=== PATIENT | male | born 1965 | race African-American/Black ===

== ENCOUNTER 2016-03-20 05:39 | Inpatient (IN) | payer OTHER ==
[2016-03-20] VITALS (7 sets, daily range): BP systolic 150–188; BP diastolic 86–144; PULSE 76–99; RESP 17–21; TEMP 97.1–98; O2SAT 94–99
[~2016-03-20] VITALS: Ht 185.4 cm; Wt 70.4 kg
[~2016-03-20 05:39] MED LIST: AMLO5 PO; ASPI81TA11 PO; ATAZ200 PO; BENZ100 PO; DULO20 PO; EPZITAB4 PO; GLUCTAB PO; HYDRA25 PO
[2016-03-20] MEDS ORDERED: SODIUM CHLOR 0.9% 1000 ML INJ 1,000 ML IV SCH (05:58)
[2016-03-20] MEDS ORDERED: SODIUM CHLORIDE 0.9% FLUSH 5 ML FLUSH IVF PRN (06:00)
[2016-03-20] MEDS ORDERED: HYDR25TA35 PO (06:07)
[2016-03-20] MEDS ORDERED: BENZ100 PO (06:07)
[2016-03-20] MEDS ORDERED: AMLO10 PO (06:07)
[2016-03-20] MEDS ORDERED: METF500T PO (06:07)
[2016-03-20 06:45] LABS: AUTOMATED NEUTROPHIL # 2.6 TH/MM3 (1.8-7.7); BASOPHIL % 0.9 % (0.0-2.0); EOSINOPHIL # 0.3 TH/MM3 (0-0.4); EOSINOPHIL % 5.4 % (0.0-4.0); HEMATOCRIT 41.5 % (39.0-51.0); HEMO FLAGS DIFF FINAL; LYMPH % 38.2 % (9.0-44.0); MEAN CELL VOLUME 89.2 FL (80.0-100.0); MEAN CORPUSCULAR HEMOGLOBIN 29.5 PG (27.0-34.0); MEAN CORPUSCULAR HGB CONC 33.1 % (32.0-36.0); MONO % 5.7 % (0.0-8.0); NEUT % 49.8 % (16.0-70.0); PLATELET COUNT 269 TH/MM3 (150-450); RED BLOOD COUNT 4.65 MIL/MM3 (4.50-5.90); RED CELL DISTRIBUTION WIDTH 16.4 % (11.6-17.2); WHITE BLOOD COUNT 5.1 TH/MM3 (4.0-11.0)
[2016-03-20] MEDS ORDERED: SODIUM CHLORID 0.9% 500 ML INJ 500 ML IV ONE (06:45)
[2016-03-20] MEDS ORDERED: MORPHINE SULFATE 4 MG/ML INJ IV PUSH ONE (06:45)
[2016-03-20] MEDS ORDERED: ONDANSETRON HCL 4 MG/2 ML VIAL IV PUSH ONE (06:45)
--- NOTE | 2016-03-20 06:50 | PD ---
HPI Chief Complaint: Abdominal Pain Time Seen by Provider: 05:58 Travel History International Travel<30 days: No Contact w/Intl Traveler<30days: No Traveled to known affect area: No History of Present Illness HPI 51-year-old male came to the emergency room with history of abdominal distention , abdominal pain and shortness of breath that's progressively worsening over past 4 weeks. Patient has HIV with questionable compliance on anti-retroviral medications. Patient was hypertensive in triage. He seems to be in distress and grunting called her oxygen saturation is 99-100% on room air. No history of nausea vomiting. [facility] Past Medical History Narrative Medical List of his past medical history as reviewed from the nursing note. Arthritis: Yes Autoimmune Disease: Yes (HIV+) Blood Disorders: Yes (HIV) Anxiety: Yes Depression: Yes Heart Rhythm Problems: No Cancer: No Cardiac Catheterization: No Cardiovascular Problems: Yes (HTN) High Cholesterol: Yes Chest Pain: No Congestive Heart Failure: No Cerebrovascular Accident: No Diabetes: Yes Patient Takes Glucophage: Yes (03/19/15 0900) Diminished Hearing: No Endocrine: No GERD: Yes Glaucoma: No Genitourinary: No Hepatitis: Yes (HEP C) Hiatal Hernia: No Hypertension: Yes Immune Disorder: Yes (HIV) Kidney Stones: No Musculoskeletal: Yes (ARTHRITIS) Neurologic: No Psychiatric: Yes (ANXIETY AND DEPRESSION) Reproductive: No Respiratory: Yes (? SLEEP APNEA) Immunizations Current: Yes Migraines: No Renal Failure: No Seizures: No Thyroid Disease: No Ulcer: No Past Surgical History Abdominal Surgery: Yes (APPENDECTOMY) AICD: No Appendectomy: Yes Cardiac Surgery: No Coronary Artery Bypass Graft: No Ear Surgery: No Endocrine Surgery: No Eye Surgery: No Genitourinary Surgery: No Gynecologic Surgery: No Joint Replacement: No Oral Surgery: No Pacemaker: No Thoracic Surgery: No Family History Family Myocardial Infarction: Yes (MOTHER'S BROTHER) Social History Alcohol Use: Yes (OCCASIONAL) Tobacco Use: Yes (< 1/2 PPD) Substance Use: No (positive for cocaine) Allergies-Medications (Allergen,Severity, Reaction): Coded Allergies: Aspirin (Verified Allergy, Severe, 03/20/16) Daypro (Verified Allergy, Mild, 03/20/16) Naprosyn (Verified Allergy, Mild, 03/20/16) Ultram (Verified Allergy, Mild, 03/20/16) Comments List of his allergies reviewed from the nursing note. Reported Meds & Prescriptions Reported Meds & Active Scripts Active Reported Metformin (Metformin HCl) 500 Mg Tab 500 Mg PO BIDPC With meals Norvasc (Amlodipine Besylate) 10 Mg Tab 10 Mg PO DAILY Hydralazine (Hydralazine HCl) 25 Mg Tab 25 Mg PO Q8HR Take with a meal Tessalon Perles (Benzonatate) 100 Mg Cap 200 Mg PO TID PRN Narrative Medication List of his home medications reviewed from the nursing note. Review of Systems Except as stated in HPI: all other systems reviewed are Neg Physical Exam Narrative GENERAL: Awake, alert, moderate distress, anxious SKIN: Warm and dry. HEAD: Atraumatic. Normocephalic. EYES: Pupils equal and round. No scleral icterus. No injection or drainage. ENT: No nasal bleeding or discharge. Mucous membranes pink and moist. NECK: Trachea midline. No JVD. CARDIOVASCULAR: Regular rate and rhythm. No murmur appreciated. RESPIRATORY: No accessory muscle use. Tachypneic. Fine crackles bibasilar GASTROINTESTINAL: Abdomen tense, non-tender, distended abdomen. Hepatic and splenic margins not palpable. MUSCULOSKELETAL: No obvious deformities. No clubbing. No cyanosis. No edema. NEUROLOGICAL: Awake and alert. No obvious cranial nerve deficits. Motor grossly within normal limits. Normal speech. PSYCHIATRIC: Appropriate mood and affect; insight and judgment normal. Data Data Last Documented VS Vital Signs Date Time Temp Pulse Resp B/P Pulse Ox O2 Delivery O2 Flow Rate FiO2 03/20/16 08:45 99 21 188/117 96 Room Air 03/20/16 05:43 97.1 Orders Complete Blood Count With Diff (03/20/16 05:58) Comprehensive Metabolic Panel (03/20/16 05:58) Lipase (03/20/16 05:58) Urinalysis - C+S If Indicated (03/20/16 05:58) Iv Access Insert/Monitor (03/20/16 05:58) Ecg Monitoring (03/20/16 05:58) Oximetry (03/20/16 05:58) Sodium Chlor 0.9% 1000 Ml Inj (Ns 1000 M (03/20/16 05:58) Sodium Chloride 0.9% Flush (Ns Flush) (03/20/16 06:00) Chest, Single Ap (03/20/16 ) Ct Abd/Pel W/O Iv Contrast (03/20/16 ) Lactic Acid (03/20/16 06:40) Sodium Chlorid 0.9% 500 Ml Inj (Ns 500 M (03/20/16 06:45) Morphine Inj (Morphine Inj) (03/20/16 06:45) Ondansetron Inj (Zofran Inj) (03/20/16 06:45) B-Type Natriuretic Peptide (03/20/16 06:50) Electrocardiogram (03/20/16 06:21) Direct Bilirubin (03/20/16 06:18) Ldh Serum (03/20/16 06:18) Magnesium (Mg) (03/20/16 06:18) Troponin I (03/20/16 06:18) Furosemide Inj (Lasix Inj) (03/20/16 07:45) Admit Order (Ed Use Only) (03/20/16 08:47) Labs Laboratory Tests Test 03/20/16 03/20/16 03/20/16 06:18 06:51 07:50 White Blood Count 5.1 TH/MM3 Red Blood Count 4.65 MIL/MM3 Hemoglobin 13.7 GM/DL Hematocrit 41.5 % Mean Corpuscular Volume 89.2 FL Mean Corpuscular Hemoglobin 29.5 PG Mean Corpuscular Hemoglobin 33.1 % Concent Red Cell Distribution Width 16.4 % Platelet Count 269 TH/MM3 Mean Platelet Volume 8.4 FL Neutrophils (%) (Auto) 49.8 % Lymphocytes (%) (Auto) 38.2 % Monocytes (%) (Auto) 5.7 % Eosinophils (%) (Auto) 5.4 % Basophils (%) (Auto) 0.9 % Neutrophils # (Auto) 2.6 TH/MM3 Lymphocytes # (Auto) 2.0 TH/MM3 Monocytes # (Auto) 0.3 TH/MM3 Eosinophils # (Auto) 0.3 TH/MM3 Basophils # (Auto) 0.0 TH/MM3 CBC Comment DIFF FINAL Differential Comment Sodium Level 139 MEQ/L Potassium Level 4.5 MEQ/L Chloride Level 106 MEQ/L Carbon Dioxide Level 27.2 MEQ/L Anion Gap 6 MEQ/L Blood Urea Nitrogen 20 MG/DL Creatinine 1.22 MG/DL Estimat Glomerular Filtration 77 ML/MIN Rate Random Glucose 86 MG/DL Calcium Level 7.9 MG/DL Magnesium Level 2.0 MG/DL Total Bilirubin 0.5 MG/DL Direct Bilirubin 0.1 MG/DL Aspartate Amino Transf 52 U/L (AST/SGOT) Alanine Aminotransferase 85 U/L (ALT/SGPT) Alkaline Phosphatase 95 U/L Lactate Dehydrogenase 352 U/L Troponin I 0.34 NG/ML B-Type Natriuretic Peptide 1216 PG/ML Total Protein 7.3 GM/DL Albumin 2.4 GM/DL Lipase 168 U/L Lactic Acid Level 1.2 mmol/L Urine Color YELLOW Urine Turbidity CLEAR Urine pH 6.0 Urine Specific [place] 1.026 Urine Protein 100 mg/dL Urine Glucose (UA) NEG mg/dL Urine Ketones NEG mg/dL Urine Occult Blood NEG Urine Nitrite NEG Urine Bilirubin NEG Urine Urobilinogen 2.0 MG/DL Urine Leukocyte Esterase NEG Urine RBC 1 /hpf Urine WBC 5 /hpf Urine Squamous Epithelial <1 /hpf Cells Urine Mucus FEW /lpf Microscopic Urinalysis Comment CULT NOT INDICATED MDM Medical Decision Making Medical Screen Exam Complete: Yes Emergency Medical Condition: Yes Medical Record Reviewed: Yes Interpretation(s) Twelve-lead EKG shows normal sinus rhythm, PVCs, nonspecific ST-T wave changes, normal axis. Heart rate of 94 bpm. Differential Diagnosis Acute pancreatitis, cirrhosis, ascites, pneumonia, PCP Narrative Course 6:49 AM CBC is back and within normal limits. Awaiting for the chemistry and CT scan to be done and resulted. Patient is getting IV fluid bolus and pain medication. Case will be signed over to the oncoming ER physician. 7:17 AM chest x-ray was reviewed and I have ordered a BNP and troponin as well. Procedures EKG Prior to Arrival: Yes Niko Ty MD Mar 20, 2016 06:50
--- NOTE | 2016-03-20 06:52 | RADRPT ---
EXAM DATE/TIME: 03/20/2016 06:44 [facility] COMPARISON: CHEST SINGLE AP, December 12, 2015, 15:36. INDICATIONS : Shortness of breath. MEDICAL HISTORY : Hypertension. Cardiovascular disease. Diabetes mellitus type II. SURGICAL HISTORY : None. ENCOUNTER: Initial ACUITY: 1 day PAIN SCORE: 0/10 LOCATION: Bilateral chest FINDINGS: Increased prominence to the heart with panchamber enlargement. There is indistinctness and engorgeme nt of the central bronchopulmonary markings. Both hemidiaphragms remain well delineated. CONCLUSION: When compared to November 2015, increase in size the heart and engorgement of the central bronchopul monary markings suggesting congestive failure. The Hasmukh Gallo MD on March 20, 2016 at 6:49 Board Certified Radiologist. This report was verified electronically.
[2016-03-20 07:16] LABS: ALKALINE PHOSPHATASE 95 U/L (45-117); ALT (GPT) 85 U/L (12-78); ANION GAP 6 MEQ/L (5-15); AST (GOT) 52 U/L (15-37); BICARBONATE 27.2 MEQ/L (21.0-32.0); BLOOD UREA NITROGEN 20 MG/DL (7-18); CHLORIDE 106 MEQ/L (98-107); GLOMERULAR FILTRATION RATE 77 ML/MIN (>89); SODIUM (NA) 139 MEQ/L (136-145); TOTAL BILIRUBIN ADULT 0.5 MG/DL (0.2-1.0)
[2016-03-20 07:31] LABS: POTASSIUM 4.5 MEQ/L (3.5-5.1)
[2016-03-20 07:41] LABS: LDH SERUM 352 U/L (87-241)
[2016-03-20] MEDS ORDERED: FUROSEMIDE 100 MG/10 ML VIAL IV PUSH ONE (07:45)
--- NOTE | 2016-03-20 08:04 | RADRPT ---
EXAM DATE/TIME: 03/20/2016 07:12 [facility] COMPARISON: No previous studies available for comparison. INDICATIONS: Abdominal pain and distention, short of breath and cough x 1 month. ORAL CONTRAST: No oral contrast ingested. RADIATION DOSE: 6.02 CTDIvol (mGy) MEDICAL HISTORY: Gastroesophageal reflux disease. Diabetes mellitus type 2. Hepatitis C.HIV. Hypertension. SURGICAL HISTORY: Appendectomy. ENCOUNTER: Initial ACUITY: 1 month PAIN SCALE: 9/10 LOCATION: Abdomen. TECHNIQUE: Volumetric scanning of the abdomen and pelvis was performed. Using automated exposure control and ad justment of the mA and/or kV according to patient size, radiation dose was kept as low as reasonably achievable to obtain optimal diagnostic quality images. FINDINGS: Lack of intravenous contrast makes detection of subtle abnormalities difficult. The heart is enlarged with small bilateral pleural effusions. There is moderate ascites. The liver is grossly free of focal defects. Spleen, pancreas, kidneys ar e grossly normal. In the pelvis moderate ascites is present. There is no definite mass. There is no free air or obstr uction Calcification is seen in what is probably phleboliths in the gonadal vein in the scrotum. Review of bone windows reveals only degenerative changes. CONCLUSION: Severely limited exam with lack of intravenous contrast. The heart is enlarged with small bilateral p leural effusions and ascites. I see no definite mass. Repeat exam with contrast is suggested. Minh Noriega MD FACR on March 20, 2016 at 7:51 Board Certified Radiologist. This report was verified electronically.
[2016-03-20 08:11] LABS: BLOOD, URINE NEG (NEG); COMMENT (UR) CULT NOT INDICATED; CULTURE IF INDICATED CULT NOT INDICATED; GLUCOSE,URINE NEG (NEG); KETONE, URINE NEG (NEG); MUCUS URINE FEW /lpf (OCC); NITRITE,URINE NEG (NEG); SQUAMOUS EPITHELIAL CELL URINE <1 /hpf (0-5); URINE COLOR YELLOW (YELLW/STRAW)
--- NOTE | 2016-03-20 08:58 | PD ---
Data Data Last Documented VS Vital Signs Date Time Temp Pulse Resp B/P Pulse Ox O2 Delivery O2 Flow Rate FiO2 03/20/16 08:45 99 21 188/117 96 Room Air 03/20/16 05:43 97.1 Orders Complete Blood Count With Diff (03/20/16 05:58) Comprehensive Metabolic Panel (03/20/16 05:58) Lipase (03/20/16 05:58) Urinalysis - C+S If Indicated (03/20/16 05:58) Iv Access Insert/Monitor (03/20/16 05:58) Ecg Monitoring (03/20/16 05:58) Oximetry (03/20/16 05:58) Sodium Chlor 0.9% 1000 Ml Inj (Ns 1000 M (03/20/16 05:58) Sodium Chloride 0.9% Flush (Ns Flush) (03/20/16 06:00) Chest, Single Ap (03/20/16 ) Ct Abd/Pel W/O Iv Contrast (03/20/16 ) Lactic Acid (03/20/16 06:40) Sodium Chlorid 0.9% 500 Ml Inj (Ns 500 M (03/20/16 06:45) Morphine Inj (Morphine Inj) (03/20/16 06:45) Ondansetron Inj (Zofran Inj) (03/20/16 06:45) B-Type Natriuretic Peptide (03/20/16 06:50) Electrocardiogram (03/20/16 06:21) Direct Bilirubin (03/20/16 06:18) Ldh Serum (03/20/16 06:18) Magnesium (Mg) (03/20/16 06:18) Troponin I (03/20/16 06:18) Furosemide Inj (Lasix Inj) (03/20/16 07:45) Admit Order (Ed Use Only) (03/20/16 08:47) Labs Laboratory Tests Test 03/20/16 03/20/16 03/20/16 06:18 06:51 07:50 White Blood Count 5.1 TH/MM3 Red Blood Count 4.65 MIL/MM3 Hemoglobin 13.7 GM/DL Hematocrit 41.5 % Mean Corpuscular Volume 89.2 FL Mean Corpuscular Hemoglobin 29.5 PG Mean Corpuscular Hemoglobin 33.1 % Concent Red Cell Distribution Width 16.4 % Platelet Count 269 TH/MM3 Mean Platelet Volume 8.4 FL Neutrophils (%) (Auto) 49.8 % Lymphocytes (%) (Auto) 38.2 % Monocytes (%) (Auto) 5.7 % Eosinophils (%) (Auto) 5.4 % Basophils (%) (Auto) 0.9 % Neutrophils # (Auto) 2.6 TH/MM3 Lymphocytes # (Auto) 2.0 TH/MM3 Monocytes # (Auto) 0.3 TH/MM3 Eosinophils # (Auto) 0.3 TH/MM3 Basophils # (Auto) 0.0 TH/MM3 CBC Comment DIFF FINAL Differential Comment Sodium Level 139 MEQ/L Potassium Level 4.5 MEQ/L Chloride Level 106 MEQ/L Carbon Dioxide Level 27.2 MEQ/L Anion Gap 6 MEQ/L Blood Urea Nitrogen 20 MG/DL Creatinine 1.22 MG/DL Estimat Glomerular Filtration 77 ML/MIN Rate Random Glucose 86 MG/DL Calcium Level 7.9 MG/DL Magnesium Level 2.0 MG/DL Total Bilirubin 0.5 MG/DL Direct Bilirubin 0.1 MG/DL Aspartate Amino Transf 52 U/L (AST/SGOT) Alanine Aminotransferase 85 U/L (ALT/SGPT) Alkaline Phosphatase 95 U/L Lactate Dehydrogenase 352 U/L Troponin I 0.34 NG/ML B-Type Natriuretic Peptide 1216 PG/ML Total Protein 7.3 GM/DL Albumin 2.4 GM/DL Lipase 168 U/L Lactic Acid Level 1.2 mmol/L Urine Color YELLOW Urine Turbidity CLEAR Urine pH 6.0 Urine Specific [place] 1.026 Urine Protein 100 mg/dL Urine Glucose (UA) NEG mg/dL Urine Ketones NEG mg/dL Urine Occult Blood NEG Urine Nitrite NEG Urine Bilirubin NEG Urine Urobilinogen 2.0 MG/DL Urine Leukocyte Esterase NEG Urine RBC 1 /hpf Urine WBC 5 /hpf Urine Squamous Epithelial <1 /hpf Cells Urine Mucus FEW /lpf Microscopic Urinalysis Comment CULT NOT INDICATED MDM Supervised Visit with DAMIEN: No Narrative Course This case is checked out to me at 7 AM. I have spoken to and examined the patient as well as reviewed the entirety of the workup I have spoken with medical residents and admitted this patient to telemetry unit He has a new onset of CHF but also pleural effusions and moderate abdominal ascites suggesting anasarca. Etiology is unclear, may be cocaine toxicity from chronic frequent use or possibly HIV related He has elevated troponin but no chest pain and no ST elevation on EKG although he does have frequent PVCs He did have higher troponins during his November admission. Patient has decent oxygen saturation but appears dyspneic and is tachypneic with respiratory rate in the 30s I have given him IV Lasix and I have Hep-Lock him He is starting to diurese Diagnosis Primary Impression: Anasarca Additional Impressions: Dyspnea Qualified Code: R06.02 - Shortness of breath Cocaine abuse HIV (human immunodeficiency virus infection) Admitting Information Admitting Physician Requests: Admit Janak Lopes MD Mar 20, 2016 08:58
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
[2016-03-20] MEDS ORDERED: NALOXONE HCL 0.4 MG/ML AMP IV PRN (10:15)
[2016-03-20] MEDS ORDERED: EMTRICITABINE/TENOFOVIR 200 MG/300 MG TAB PO SCH (10:15)
[2016-03-20] MEDS ORDERED: SODIUM CHLORIDE 0.9% FLUSH 5 ML FLUSH FLUSH PRN (10:15)
--- NOTE | 2016-03-20 10:25 | HHI.FPPN ---
Subjective Remarks Pt. seen, examined and discussed with the medicine team. This is a 51 yo AA male [place] with known HIV, DM, HTN, PTSD, depression who presents with one month of worsening shortness of breath and abdominal fullness which has become severe, limiting his ADLS, sleep and overall ability to care for himself or his parents. He has a cough productive of small amount of clear sputum. No fever, chills or sweats. He has difficulty getting comfortable, either lying, sitting, standing. Gets SOB with minimal exertion. He has a [facility] doctor and a [facility] HIV doctor in [facility] whom he saw last in September 2015. Does not know his CD4 count. Has not been taking his Cymbalta, is taking his HIV meds. Smoked cocaine over the holidays. Smokes 1/3 ppd cigarettes, occasional etoh, no other illicits. Lives with his parents, is on disability so he no longer works. He has no chilren. Parents with HTN, mom with DM. See H&P for this admission for additional historical details. Complete ROS reveals the cough, SOB, abdominal distention, point tenderness upper abdomen, excessive urination, all other systems negative. Objective Vitals Vital Signs Date Time Temp Pulse Resp B/P Pulse Ox O2 Delivery O2 Flow Rate FiO2 03/20/16 08:45 99 21 188/117 96 Room Air 03/20/16 05:43 97.1 92 18 186/117 97 Room Air I/O 03/19/16 03/19/16 03/19/16 03/20/16 03/20/16 03/20/16 07:00 15:00 23:00 07:00 15:00 23:00 Output Total 2000 ml Balance -2000 ml Output Urine Total 2000 ml # Voids 2 Result Diagram: 03/20/16 0618 03/20/16 0618 Other Results Laboratory Tests Test 03/20/16 03/20/16 03/20/16 06:18 06:51 07:50 White Blood Count 5.1 TH/MM3 Red Blood Count 4.65 MIL/MM3 Hemoglobin 13.7 GM/DL Hematocrit 41.5 % Mean Corpuscular Volume 89.2 FL Mean Corpuscular Hemoglobin 29.5 PG Mean Corpuscular Hemoglobin 33.1 % Concent Red Cell Distribution Width 16.4 % Platelet Count 269 TH/MM3 Mean Platelet Volume 8.4 FL Neutrophils (%) (Auto) 49.8 % Lymphocytes (%) (Auto) 38.2 % Monocytes (%) (Auto) 5.7 % Eosinophils (%) (Auto) 5.4 % Basophils (%) (Auto) 0.9 % Neutrophils # (Auto) 2.6 TH/MM3 Lymphocytes # (Auto) 2.0 TH/MM3 Monocytes # (Auto) 0.3 TH/MM3 Eosinophils # (Auto) 0.3 TH/MM3 Basophils # (Auto) 0.0 TH/MM3 CBC Comment DIFF FINAL Differential Comment Sodium Level 139 MEQ/L Potassium Level 4.5 MEQ/L Chloride Level 106 MEQ/L Carbon Dioxide Level 27.2 MEQ/L Anion Gap 6 MEQ/L Blood Urea Nitrogen 20 MG/DL Creatinine 1.22 MG/DL Estimat Glomerular Filtration 77 ML/MIN Rate Random Glucose 86 MG/DL Calcium Level 7.9 MG/DL Magnesium Level 2.0 MG/DL Total Bilirubin 0.5 MG/DL Direct Bilirubin 0.1 MG/DL Aspartate Amino Transf 52 U/L (AST/SGOT) Alanine Aminotransferase 85 U/L (ALT/SGPT) Alkaline Phosphatase 95 U/L Lactate Dehydrogenase 352 U/L Troponin I 0.34 NG/ML B-Type Natriuretic Peptide 1216 PG/ML Total Protein 7.3 GM/DL Albumin 2.4 GM/DL Lipase 168 U/L Lactic Acid Level 1.2 mmol/L Urine Color YELLOW Urine Turbidity CLEAR Urine pH 6.0 Urine Specific [place] 1.026 Urine Protein 100 mg/dL Urine Glucose (UA) NEG mg/dL Urine Ketones NEG mg/dL Urine Occult Blood NEG Urine Nitrite NEG Urine Bilirubin NEG Urine Urobilinogen 2.0 MG/DL Urine Leukocyte Esterase NEG Urine RBC 1 /hpf Urine WBC 5 /hpf Urine Squamous Epithelial <1 /hpf Cells Urine Mucus FEW /lpf Microscopic Urinalysis Comment CULT NOT INDICATED Imaging Last Impressions Chest X-Ray 03/20/16 0000 Signed Impressions: Service Date/Time: Sunday, March 20, 2016 06:44 - CONCLUSION: When compared to November 2015, increase in size the heart and engorgement of the central bronchopulmonary markings suggesting congestive failure. The Hasmukh Gallo MD Objective Remarks O. CONSTITUTIONAL/GEN: normally nourished, in distress with SOB and inability to get comfortable in any position. EYES: conjunctiva normal, PERRLA, EOMI. ENT: Mouth and pharynx normal. NECK: thyroid midline, neck supple, no lymphadenopathy. LUNGS: Tachypneic at 30/min., bibasilar rales. CARDIOVASCULAR: RR without murmur or gallop. No significant edema. GI/ABD: soft without masses, without organomegaly. Point tender in midline without palpable defect, distention without appreciable fluid wave : no CVA tenderness NEURO: No focal deficits. SKIN: color normal, no rashes noted. HEME/LYMPH: no bruising, petechia or significant adenopathy MUSC: back is normal in appearance. Extremities are normal in appearance. PSYCH/MENTAL STATUS: Alert and oriented x 3. A/P Assessment and Plan 51 yo male with known HIV, DM, HTN and depression who presents with progressive SOB. CXR has appearance of CHF. Attending Attestation Patient seen and examined. Case reviewed and discussed with the resident team. Agree with plan of care as discussed with me and documented in the resident note. Pastora Palacios MD Mar 20, 2016 10:24
[2016-03-20] MEDS: HEPARIN SODIUM - SQ 10,000 UNITS/ML VIAL SQ SCH ×2 (11:42→18:50)
[2016-03-20] MEDS: ONDANSETRON HCL 4 MG/2 ML VIAL IVP PRN ×2 (11:42→22:04)
[2016-03-20] MEDS: NICOTINE 7 MG/24 HR PATCH TD SCH (12:10)
[2016-03-20] MEDS: ACETAMINOPHEN 325 MG TAB PO PRN (12:27)
[2016-03-20] MEDS: hydrALAZINE HCL 25 MG TAB PO SCH ×2 (13:38→22:03)
[2016-03-20] MEDS ORDERED: hydrALAZINE HCL 20 MG/ML VIAL IV PRN (15:30)
--- NOTE | 2016-03-20 16:55 | EKG ---
Date Performed: 03/20/2016 Time Performed: 06:21:28 PTAGE: 51 years EKG: Sinus rhythm WITH FREQUENT VENTRICULAR PREMATURE COMPLEXES POSSIBLE LEFT ATRIAL ENLARGEMENT POSSIBLE LEFT VENTRIC ULAR HYPERTROPHY NONSPECIFIC T-WAVE ABNORMALITY ABNORMAL ECG PREVIOUS TRACING : 12/10/2015 09.12 Compared to previous tracing, the patient is having frequen t PVCs and the biphasic T-waves have improved DOCTOR: Salome Moreira Interpretating Date/Time 03/20/2016 16:54:23
[2016-03-20] MEDS: cloNIDine HCL 0.1 MG TAB PO PRN (17:43)
[2016-03-20] MEDS: FUROSEMIDE 20 MG/2 ML VIAL IV PUSH SCH (17:44)
[2016-03-20] MEDS: SODIUM CHLORIDE 0.9% FLUSH 5 ML FLUSH FLUSH SCH (21:00)
[2016-03-21] VITALS (8 sets, daily range): BP systolic 139–155; BP diastolic 85–109; PULSE 73–90; RESP 18–20; TEMP 96.6–98; O2SAT 93–100
[2016-03-21] MEDS: HEPARIN SODIUM - SQ 10,000 UNITS/ML VIAL SQ SCH ×3 (03:19→19:06)
[2016-03-21] MEDS: cloNIDine HCL 0.1 MG TAB PO PRN (05:48)
[2016-03-21] MEDS: hydrALAZINE HCL 25 MG TAB PO SCH ×3 (05:48→21:30)
[2016-03-21 07:54] LABS: AUTOMATED NEUTROPHIL # 3.1 TH/MM3 (1.8-7.7); BASOPHIL # 0.1 TH/MM3 (0-0.2); BASOPHIL % 0.9 % (0.0-2.0); EOSINOPHIL # 0.3 TH/MM3 (0-0.4); EOSINOPHIL % 4.7 % (0.0-4.0); HEMATOCRIT 39.3 % (39.0-51.0); HEMO FLAGS DIFF FINAL; LYMPH % 32.8 % (9.0-44.0); LYMPHOCYTE # 1.8 TH/MM3 (1.0-4.8); MEAN CELL VOLUME 88.1 FL (80.0-100.0); MEAN CORPUSCULAR HEMOGLOBIN 28.8 PG (27.0-34.0); MEAN CORPUSCULAR HGB CONC 32.7 % (32.0-36.0); MONO % 6.5 % (0.0-8.0); NEUT % 55.1 % (16.0-70.0); PLATELET COUNT 241 TH/MM3 (150-450); RED BLOOD COUNT 4.46 MIL/MM3 (4.50-5.90); RED CELL DISTRIBUTION WIDTH 16.2 % (11.6-17.2); WHITE BLOOD COUNT 5.6 TH/MM3 (4.0-11.0)
[2016-03-21 08:34] LABS: ALKALINE PHOSPHATASE 95 U/L (45-117); ALT (GPT) 66 U/L (12-78); ANION GAP 9 MEQ/L (5-15); AST (GOT) 30 U/L (15-37); BLOOD UREA NITROGEN 16 MG/DL (7-18); CHLORIDE 100 MEQ/L (98-107); GLOMERULAR FILTRATION RATE 84 ML/MIN (>89); POTASSIUM 3.8 MEQ/L (3.5-5.1); SODIUM (NA) 138 MEQ/L (136-145); TOTAL BILIRUBIN ADULT 0.3 MG/DL (0.2-1.0)
[2016-03-21] MEDS ORDERED: PNEUMOCOCCAL POLYVALENT INJ 25 MCG/0.5 ML SYR IM ONE (09:00)
[2016-03-21] MEDS ORDERED: INFLUENZA VIRUS VACCINE (QUADRIVALENT) 0.5 ML SYR IM ONE (09:00)
[2016-03-21] MEDS: SODIUM CHLORIDE 0.9% FLUSH 5 ML FLUSH FLUSH SCH ×2 (09:51→21:30)
[2016-03-21] MEDS: NICOTINE 7 MG/24 HR PATCH TD SCH (09:55)
[2016-03-21] MEDS: FUROSEMIDE 20 MG/2 ML VIAL IV PUSH SCH ×2 (09:56→19:07)
[2016-03-21] MEDS: BENZONATATE 100 MG CAP PO PRN ×2 (10:08→21:30)
[2016-03-21] MEDS: ACETAMINOPHEN 325 MG TAB PO PRN ×2 (10:08→12:37)
--- NOTE | 2016-03-21 10:50 | HHI.FPPN ---
Subjective Remarks No acute events overnight. Except for some pulse in the 90s, hypertension ranging from 150s to 170s systolic, pulse ox ranging from 93% to 99% on room air , afebrile and vital signs stable. Patient complaining of some left chest, shoulder, back pain, all of which are exacerbated by palpation or coughing. He also complained that he has a sebaceous cyst on his back that is malodorous. ( Kush Gavin MD R1) Objective Vitals Vital Signs Date Time Temp Pulse Resp B/P Pulse Ox O2 Delivery O2 Flow Rate FiO2 03/21/16 08:23 96.6 87 20 154/105 99 03/21/16 05:15 96 03/21/16 04:00 97.1 90 18 152/106 99 03/21/16 00:00 97.0 78 18 155/109 93 03/20/16 20:00 97.5 88 18 154/ 94 03/20/16 20:00 97.5 88 18 154/101 94 03/20/16 17:45 98.0 98 18 171/90 99 Room Air 03/20/16 15:00 76 18 150/94 98 Room Air 03/20/16 13:27 17 03/20/16 12:28 98.0 94 17 176/86 99 Room Air 03/20/16 11:45 95 20 180/144 98 Room Air I/O 03/20/16 03/20/16 03/20/16 03/21/16 03/21/16 03/21/16 07:00 15:00 23:00 07:00 15:00 23:00 Intake Total 100 ml 120 ml 480 ml Output Total 3600 ml 500 ml Balance -3500 ml -380 ml 480 ml Intake Oral 100 ml 120 ml 480 ml Output Urine Total 3600 ml 500 ml # Voids 4 1 3 # Bowel Movements 0 (Kush Gavin MD R1) Result Diagram: 03/21/16 0630 03/21/16 0630 Objective Remarks O. CONSTITUTIONAL/GEN: normally nourished, lying in bed in no acute distress EYES: conjunctiva normal, PERRLA, EOMI. ENT: Mouth and pharynx normal. NECK: thyroid midline, neck supple, no lymphadenopathy. LUNGS: Regular respiratory rate, good air movement, bibasilar rales. CARDIOVASCULAR: RR without murmur or gallop. No significant edema. GI/ABD: soft without masses, without organomegaly. Point tender in midline without palpable defect, distention without appreciable fluid wave : no CVA tenderness NEURO: No focal deficits. SKIN: color normal, no rashes noted. 5 cm by 4 cm sebaceous cyst present on his left upper back. HEME/LYMPH: no bruising, petechia or significant adenopathy MUSC: back is normal in appearance. Extremities are normal in appearance. PSYCH/MENTAL STATUS: Alert and oriented x 3. (Kush Gavin MD R1) A/P Assessment and Plan Patient is a 51-year-old man with a history of recent cocaine use, HIV with questionable medication compliance who presents with shortness of breath, orthopnea, BNP of 1216, imaging suggestive of congestive heart failure with enlarged heart, bilateral pleural effusions, ascites, central bronchopulmonary engorgement. (Kush Gavin MD R1) Attending Attestation Patient seen and examined. Case reviewed and discussed with the resident team. Agree with plan of care as discussed with me and documented in the resident note. (Pastora Palacios MD) Problem List: (1) Heart failure Status: Acute Plan: Patient is a 51-year-old man with a history of recent cocaine use, HIV with questionable medication compliance who presents with shortness of breath, orthopnea, BNP of 1216, imaging suggestive of congestive heart failure with enlarged heart, bilateral pleural effusions, ascites, central bronchopulmonary engorgement. Admit to inpatient for possible new-onset heart failure Echocardiogram CBC, CMP in the morning Lasix 20 mg IV push twice a day Monitor intake and output Monitor vital signs Administer oxygen as needed (2) Cough Status: Acute Plan: Patient complains of a cough. His new complaint of left chest, shoulder, back pain is likely related to this cough. Continue home medication of Tessalon 200 mg by mouth 3 times a day when necessary for cough (3) Abdominal pain Status: Acute Plan: Denies abdominal pain is only present with palpation, most likely musculoskeletal in origin, most likely related to his cough. Continue to monitor (4) HIV (human immunodeficiency virus infection) Status: Chronic Plan: Patient reports history of HIV with lack of follow-up. It is currently unknown what antiretrovirals he takes. We will attempt to get [facility] records and reinitiate his antiretroviral therapy (5) Elevated troponin Status: Chronic Plan: Patient presents with elevated troponin of 0.34. Back in November 2015, patient presented with troponins of 0.63-0.70. Appears to be a chronic elevation. (6) HTN (hypertension) Status: Chronic Plan: Continue home medications as below: Amlodipine 10 mg by mouth daily Hydralazine 25 mg by mouth every 8 hours Added when necessary antihypertensives clonidine and hydralazine (7) DM (diabetes mellitus) Status: Chronic Plan: Patient reports taking metformin. Stopped metformin (8) No contraindication to deep vein thrombosis (DVT) prophylaxis Status: Acute Plan: Heparin 5000 units subcutaneous every 8 hours (9) Nutrition, metabolism, and development symptoms Status: Acute Plan: Fluids: No IV fluids at this time. We'll continue to monitor fluid status. Electrolytes: Continue to monitor and replete as needed Nutrition: Regular diet GI prophylaxis: None indicated at this time (Kush Gavin MD R1) Kush Gavin MD R1 Mar 21, 2016 10:49 Pastora Palacios MD Mar 21, 2016 15:18
--- NOTE | 2016-03-21 20:00 | EC ---
Study Study Date:03/21/2016 STUDY CONCLUSIONS SUMMARY - Left ventricle: The cavity size was mildly dilated. Wall thickness was normal. Systolic function was mildly to moderately reduced. The estimated ejection fraction was in the range of 40% to 45%. Diffuse hypokinesis. - Aortic valve: Trace regurgitation. - Mitral valve: Moderate to severe regurgitation. - Left atrium: The atrium was mildly dilated. - Tricuspid valve: Mild regurgitation. - Pulmonary arteries: PA peak pressure: 41mm Hg (S). If LV function is below 40, please consider prescribing an ACEI or ARB or document rationale for non-use. PROCEDURE DATA STUDY STATUS: Elective. Procedure: Transthoracic echocardiography. Image quality was good. Scanning was performed from the parasternal, apical, and subcostal acoustic windows. Study completion: The patient tolerated the procedure well. Transthoracic echocardiography. M-mode, complete 2D, complete spectral Doppler, and color Doppler. Patient status: Inpatient. CARDIAC ANATOMY LEFT VENTRICLE: The cavity size was mildly dilated. Wall thickness was normal. Systolic function was mildly to moderately reduced. The estimated ejection fraction was in the range of 40% to 45%. Diffuse hypokinesis. AORTIC VALVE: Trileaflet; normal thickness leaflets. Doppler: Transvalvular velocity was within the normal range. There was no stenosis. Trace regurgitation. AORTA: Aortic root: The aortic root was normal in size. MITRAL VALVE: Structurally normal valve. Doppler: Transvalvular velocity was within the normal range. There was no evidence for stenosis. Moderate to severe regurgitation. Mean gradient: 3mm Hg (D). Peak gradient: 11mm Hg (D). LEFT ATRIUM: The atrium was mildly dilated. RIGHT VENTRICLE: The cavity size was normal. Wall thickness was normal. PULMONIC VALVE: Doppler: Transvalvular velocity was within the normal range. There was no evidence for stenosis. No regurgitation. TRICUSPID VALVE: Structurally normal valve. Doppler: Transvalvular velocity was within the normal range. Mild regurgitation. PULMONARY ARTERY: The main pulmonary artery was normal-sized. Systolic pressure was within the normal range. RIGHT ATRIUM: The atrium was normal in size. PERICARDIUM: There was no pericardial effusion. SYSTEMIC VEINS: Inferior vena cava: The vessel was dilated. BASIC MEASUREMENTS ADULT Normal Left ventricle LV internal dimension, ED, chordal level, *54.2 mm 43-52 PLAX LV internal dimension, ES, chordal level, *46.5 mm 23-38 PLAX Fractional shortening, chordal level, PLAX *14 % >29 LV posterior wall thickness, ED 8.9 mm IVS/LVPW ratio, ED 1.07 <1.3 Ventricular septum Septal thickness, ED 9.51 mm Aortic valve Leaflet separation 22 mm 15-26 Left atrium Anterior-posterior dimension 43 mm Right ventricle RV internal dimension, ED, PLAX 25.2 mm 19-38 BASIC MEASUREMENTS ADULT Normal Aortic valve Leaflet separation 22 mm 15-26 Aorta Root diameter, ED 31 mm 20-37 DOPPLER MEASUREMENTS ADULT Normal Main pulmonary artery Pressure, S *41 mm Hg =30 Aortic valve VTI, S 38 cm Mitral valve Peak E-wave velocity 143 cm/s Peak A-wave velocity 50.7 cm/s Mean velocity, D 72.6 cm/s Mean gradient, D 3 mm Hg Peak gradient, D 11 mm Hg Peak E/A ratio 2.8 Tricuspid valve Regurgitant peak velocity 278 cm/s Peak RV-RA gradient, S 31 mm Hg Maximal regurgitant velocity 278 cm/s Systemic veins Estimated CVP 10 mm Hg Right ventricle RV pressure, S *41 mm Hg <30 LEGEND: Mean values are shown as u=mean value. Asterisk (*) alvarenga values outside specified normal range. Prepared and signed by Sage Olvera [id number]
[2016-03-21] MEDS ORDERED: ABAC1TAB3 PO (20:24)
[2016-03-21] MEDS: ACETAMINOPHEN/HYDROcodone 325 MG/5 MG TAB PO PRN (21:30)
[2016-03-22] VITALS: BP_SYST 140; BP_SYST 159; BP_DIAS 108; BP_DIAS 90; PULSE 86; RESP 16; TEMP 96.4; O2SAT 95
[2016-03-22] MEDS: cloNIDine HCL 0.1 MG TAB PO PRN (01:10)
[2016-03-22] MEDS: ACETAMINOPHEN/HYDROcodone 325 MG/5 MG TAB PO PRN ×3 (01:20→14:30)
[2016-03-22] MEDS: HEPARIN SODIUM - SQ 10,000 UNITS/ML VIAL SQ SCH ×2 (03:00→10:26)
[2016-03-22 04:00] VITALS: BP 141/97; PULSE 77; RESP 25; TEMP 96.4; O2SAT 97
[2016-03-22] MEDS: hydrALAZINE HCL 25 MG TAB PO SCH ×2 (05:51→14:30)
[2016-03-22] MEDS: BENZONATATE 100 MG CAP PO PRN (05:51)
[2016-03-22 07:20] VITALS: BP 146/99; PULSE 87; RESP 18; TEMP 96.3; O2SAT 97
[2016-03-22] MEDS ORDERED: ABACAVIR SULFATE 300 MG TAB PO SCH (09:00)
[2016-03-22] MEDS ORDERED: DOLUTEGRAVIR SODIUM 50 MG TAB PO SCH (09:00)
[2016-03-22] MEDS ORDERED: NON-FORMULARY DRUG (Abacavir-Dolutegravir-Lamivudine (Triumeq) 1 TAB) PO SCH (09:00)
[2016-03-22] MEDS: SODIUM CHLORIDE 0.9% FLUSH 5 ML FLUSH FLUSH SCH (09:29)
[2016-03-22] MEDS: FUROSEMIDE 20 MG/2 ML VIAL IV PUSH SCH (09:30)
[2016-03-22] MEDS: NICOTINE 7 MG/24 HR PATCH TD SCH (09:30)
--- NOTE | 2016-03-22 09:38 | HHI.FPPN ---
Subjective Remarks Patient states he is improved from yesterday. His main complaints continue to be intermittent musculoskeletal upper left chest discomfort during palpation and cough; his other complaint is a sebaceous cyst on his left upper back. Otherwise, he is breathing comfortably on room air during my exam. Oxygen saturation on room air during my exam is 100%. Shortness of breath is improved. He is urinating more with the Lasix and he thinks he may have lost some weight. No nausea, vomiting, diarrhea, headache. ( Santino Palacios MD R2) Objective Vitals Vital Signs Date Time Temp Pulse Resp B/P Pulse Ox O2 Delivery O2 Flow Rate FiO2 03/22/16 07:20 96.3 87 18 146/99 97 03/22/16 04:00 96.4 77 25 141/97 97 03/22/16 00:00 140/90 03/22/16 00:00 96.4 86 16 159/108 95 03/21/16 20:00 97.0 78 18 139/85 100 03/21/16 20:00 Nasal Cannula 2.00 03/21/16 16:18 98.0 83 18 139/87 100 03/21/16 12:16 99 Nasal Cannula 2.00 03/21/16 12:14 97.5 73 18 140/98 100 I/O 03/21/16 03/21/16 03/21/16 03/22/16 03/22/16 03/22/16 07:00 15:00 23:00 07:00 15:00 23:00 Intake Total 480 ml 720 ml 0 ml Output Total 1050 ml 1000 ml Balance 480 ml -330 ml -1000 ml 0 ml Intake Oral 480 ml 720 ml IV Total 0 ml Output Urine Total 1050 ml 1000 ml # Voids 3 (Santnio Palacios MD R2) Result Diagram: 03/21/16 0630 03/21/16 0630 Objective Remarks O. CONSTITUTIONAL/GEN: normally nourished, lying in bed in no acute distress EYES: conjunctiva normal, PERRLA, EOMI. ENT: Mouth and pharynx normal. NECK: thyroid midline, neck supple, no lymphadenopathy. LUNGS: Regular respiratory rate, good air movement, bibasilar rales. CARDIOVASCULAR: RR without murmur or gallop. No significant edema. GI/ABD: soft without masses, without organomegaly. Point tender in midline without palpable defect; improved abdominal distention. : no CVA tenderness NEURO: No focal deficits. SKIN: color normal, no rashes noted. 5 cm by 4 cm sebaceous cyst present on his left upper back. HEME/LYMPH: no bruising, petechia or significant adenopathy MUSC: back is normal in appearance. Extremities are normal in appearance. PSYCH/MENTAL STATUS: Alert and oriented x 3. (Santino Palacios MD R2) A/P Assessment and Plan Patient is a 51-year-old man with a history of recent cocaine use, HIV with questionable medication compliance who presents with shortness of breath, orthopnea, BNP of 1216, imaging suggestive of congestive heart failure with enlarged heart, bilateral pleural effusions, ascites, central bronchopulmonary engorgement. Discharge Planning Likely today. (Santino Palacios MD R2) Attending Attestation Patient seen and examined. Case reviewed and discussed with the resident team. Agree with plan of care as discussed with me and documented in the resident note. (Pastora Palacios MD) Problem List: (1) Heart failure Status: Acute Plan: Patient is a 51-year-old man with a history of recent cocaine use, HIV with questionable medication compliance who presents with shortness of breath, orthopnea, BNP of 1216, imaging suggestive of congestive heart failure with enlarged heart, bilateral pleural effusions, ascites, central bronchopulmonary engorgement. Echocardiogram: Ejection fraction 40-45% Lasix 20 mg IV push twice a day; continue Lasix at home. -Start lisinopril 10 mg daily Monitor intake and output: 720/2050; -Initial weight of 73 pounds. Today's weight 70.4 Oxygen 100% on room air during my exam (2) Cough Status: Acute Plan: Likely secondary to congestive heart failure. Continue Lasix (3) Abdominal pain Status: Acute Plan: Denies abdominal pain is only present with palpation, most likely musculoskeletal in origin, most likely related to his cough. Continue to monitor (4) HIV (human immunodeficiency virus infection) Status: Chronic Plan: Patient reports history of HIV Continue home medications: lamivudine, abacavir, tivicay (5) Elevated troponin Status: Chronic Plan: Patient presents with elevated troponin of 0.34. Back in November 2015, patient presented with troponins of 0.63-0.70. Appears to be a chronic elevation from CHF (6) HTN (hypertension) Status: Chronic Plan: Continue home medications as below: Amlodipine 10 mg by mouth daily Hydralazine 25 mg by mouth every 8 hours Added when necessary antihypertensives clonidine and hydralazine (7) DM (diabetes mellitus) Status: Chronic Plan: Patient reports taking metformin. Glucose has been controlled in the hospital. (8) No contraindication to deep vein thrombosis (DVT) prophylaxis Status: Acute Plan: Heparin 5000 units subcutaneous every 8 hours (9) Nutrition, metabolism, and development symptoms Status: Acute Plan: Fluids: No IV fluids at this time. We'll continue to monitor fluid status. Electrolytes: Continue to monitor and replete as needed Nutrition: Regular diet GI prophylaxis: None indicated at this time (Santino Palacios MD R2) Problem Qualifiers (1) DM (diabetes mellitus): Qualified Code: E11.9 - Type 2 diabetes mellitus without complication, without long-term current use of insulin Santino Palacios MD R2 Mar 22, 2016 09:38 Pastora Palacios MD Mar 22, 2016 13:36
[2016-03-22] MEDS ORDERED: LISINOPRIL 10 MG TAB PO SCH (09:45)
[2016-03-22] MEDS ORDERED: FURO1TAB60 PO (10:40)
[2016-03-22] MEDS ORDERED: LISI10TA3 PO (10:40)
--- NOTE | 2016-03-22 10:40 | HHI.DCPOC ---
Discharge Care Plan Diagnosis: (1) Heart failure (2) HIV (human immunodeficiency virus infection) (3) Anasarca Goals to Promote Your Health * To prevent worsening of your condition and complications * To maintain your health at the optimal level Directions to Meet Your Goals Take your medications as prescribed Follow your dietary instruction Follow activity as directed Keep your appointments as scheduled Take your immunizations and boosters as scheduled If your symptoms worsen call your PCP, if no PCP go to Urgent Care Center or Emergency Room Smoking is Dangerous to Your Health. Avoid second hand smoke Call the 24-hour hour crisis hotline for domestic abuse at Santino Palacios MD R2 Mar 22, 2016 10:40
[2016-03-22 11:10] VITALS: O2SAT 97
[2016-03-22 11:45] VITALS: BP 133/83; PULSE 87; RESP 18; TEMP 97.3; O2SAT 95
== END 2016-03-22 14:57 | disposition home or self-care (01) | DRG 291 ==
LOC: NEPC 05:39 → NEDA 08:51 → N05A 19:11
PROVIDERS: ADMIT Family Medicine; ATTEND Family Medicine
DX: I11.0 Hypertensive heart disease with heart failure (principal); B20 Human immunodeficiency virus [HIV] disease; R18.8 Other ascites; I50.9 Heart failure, unspecified; F14.10 Cocaine abuse, uncomplicated; I49.3 Ventricular premature depolarization; E11.9 Type 2 diabetes mellitus without complications; K21.9 Gastro-esophageal reflux disease without esophagitis; B19.20 Unspecified viral hepatitis C without hepatic coma; M19.90 Unspecified osteoarthritis, unspecified site; G47.30 Sleep apnea, unspecified; L72.3 Sebaceous cyst; R10.9 Unspecified abdominal pain; F41.9 Anxiety disorder, unspecified; F32.9 Major depressive disorder, single episode, unspecified; F43.10 Post-traumatic stress disorder, unspecified; F17.210 Nicotine dependence, cigarettes, uncomplicated; Z79.84 Long term (current) use of oral hypoglycemic drugs; Z82.49 Family history of ischemic heart disease and other diseases of the circulatory system; Z83.3 Family history of diabetes mellitus; Z88.6 Allergy status to analgesic agent
CPT/HCPCS: 71010; 74176; 80053; 81001; 82248; 83605; 83615; 83690; 83735; 83880; 84484; 85025; 93005; 93306; 96361; 96374; 96375; J1644; J1940; J2270; J2405; J7030; J7040